=== PATIENT | male | born 1980 | race Two or more races ===

== ENCOUNTER 2023-09-14 06:19 | Day surgery (SDC) | payer OTHER | END 2023-09-14 18:00 | disposition home or self-care (01) | LOC: CIR.AMB 06:19 | PROVIDERS: ATTEND Colon & Rectal Surgery | DX: D37.5 Neoplasm of uncertain behavior of rectum (principal); A63.0 Anogenital (venereal) warts; L29.0 Pruritus ani; D12.9 Benign neoplasm of anus and anal canal; D12.8 Benign neoplasm of rectum; Z20.822 Contact with and (suspected) exposure to COVID-19 ==